=== PATIENT | male | born 1990 | race African-American/Black ===

== ENCOUNTER 2025-07-04 22:28 | Emergency (ER) | payer OTHER, MEDICAID ==
[~2025-07-04] VITALS: Ht 182.9 cm; Wt 100.0 kg
[2025-07-04 22:34] VITALS: O2SAT 98
[2025-07-05] MEDS: ACETAMINOPHEN 500MG TABLET PO NR (01:33)
[2025-07-05] MEDS: DEXAMETHASONE 10 MG/ML VIAL IM NR (01:33)
[2025-07-05] MEDS: KETOROLAC 30MG/ML VIAL IM NR (01:33)
[2025-07-05] MEDS ORDERED: IBUP-1455 MT (01:38)
[2025-07-05] MEDS ORDERED: BACL-141 MT (01:38)
[2025-07-05 01:48] VITALS: TEMP 98.6
[2025-07-05] MEDS: KETOROLAC 30MG/ML VIAL IM ONE (01:48)
[2025-07-05] MEDS: ACETAMINOPHEN 500MG TABLET PO ONE (01:48)
[2025-07-05] MEDS: DEXAMETHASONE 10 MG/ML VIAL IM ONE (01:48)
[2025-07-05] MEDS: LIDOCAINE 5% PATCH TOP SCH (01:49)
[2025-07-05 01:56] VITALS: BP 112/70; PULSE 60; RESP 16; O2SAT 100
== END 2025-07-05 02:02 | disposition home or self-care (01) ==
LOC: ER 22:28
DX: M54.50 Low back pain, unspecified (principal); Z79.52 Long term (current) use of systemic steroids; V89.2XXA Person injured in unspecified motor-vehicle accident, traffic, initial encounter; Y93.89 Activity, other specified; Y92.410 Unspecified street and highway as the place of occurrence of the external cause; Y99.8 Other external cause status
CPT/HCPCS: 99285; 72128; 72131; 96372; J1885; J1100